=== PATIENT | male | born 1980 | race Two or more races ===

== ENCOUNTER 2017-11-16 10:27 | Emergency (ER) | payer OTHER ==
[2017-11-16] MEDS ORDERED: DIPHTH/TETANUS/ACEL. PERTUSSIS 0.5 ML SYR IM ONE (11:00)
[2017-11-16 12:04] VITALS: BP 112/68
== END 2017-11-16 12:06 | disposition home or self-care (01) ==
LOC: FSED 10:27
DX: S90.01XA Contusion of right ankle, initial encounter (principal); S90.511A Abrasion, right ankle, initial encounter; S80.811A Abrasion, right lower leg, initial encounter; W22.8XXA Striking against or struck by other objects, initial encounter; Y93.89 Activity, other specified; Z23 Encounter for immunization; Y92.69 Other specified industrial and construction area as the place of occurrence of the external cause
CPT/HCPCS: 90471; 99283

== ENCOUNTER 2017-11-23 12:33 | Emergency (ER) | payer OTHER ==
[~2017-11-23] VITALS: Ht 177.8 cm; Wt 63.5 kg
[2017-11-23 14:54] VITALS: BP 132/70
== END 2017-11-23 14:56 | disposition home or self-care (01) ==
LOC: FSED 12:34
DX: M79.661 Pain in right lower leg (principal); Y99.0 Civilian activity done for income or pay
CPT/HCPCS: 93971; 99283